=== PATIENT | female | born 1950 | race Caucasian/White ===

== ENCOUNTER 2018-02-05 17:42 | Inpatient (IN) | payer MEDICARE, BC ==
[~2018-02-05] VITALS: Ht 149.9 cm; Wt 52.6 kg
[2018-02-05] MEDS ORDERED: LOVA20TA2 PO (17:59)
[2018-02-05] MEDS ORDERED: TIZA4TAB4 PO (17:59)
[2018-02-05] MEDS ORDERED: LEVE500T20 PO (17:59)
[2018-02-05] MEDS ORDERED: HYDR-551 PO (17:59)
[2018-02-05] MEDS ORDERED: SULF1TAB48 PO (17:59)
[2018-02-05] MEDS ORDERED: GABA-532 PO (17:59)
[2018-02-05] MEDS ORDERED: CHLO118L TP (17:59)
[2018-02-05] MEDS ORDERED: DULO60CA45 PO (17:59)
[2018-02-05] MEDS ORDERED: CHOL20004 PO (17:59)
[2018-02-05] MEDS ORDERED: NAPR500T6 PO (17:59)
[2018-02-05] MEDS ORDERED: NAPR220T66 PO (17:59)
[2018-02-05] MEDS ORDERED: TRAM50TA2 PO (17:59)
[2018-02-05] MEDS ORDERED: LISI40TA4 PO (17:59)
[2018-02-05] MEDS ORDERED: DENO60DI SQ (17:59)
[2018-02-05] MEDS ORDERED: ALPR0.5T8 PO (17:59)
[2018-02-05] MEDS ORDERED: DULO30CA2 PO (17:59)
[2018-02-05] MEDS ORDERED: DICL75TA5 PO (17:59)
[2018-02-05] MEDS ORDERED: ALEN70TA45 PO (17:59)
[2018-02-05] MEDS ORDERED: HYDR25TA4 PO (17:59)
[2018-02-05] MEDS ORDERED: OXYB5TAB11 PO (17:59)
[2018-02-05] MEDS ORDERED: OMEP20TA5 PO (17:59)
[2018-02-05] MEDS ORDERED: CEPH500C2 PO (17:59)
[2018-02-05] MEDS ORDERED: MELO-107 PO (17:59)
[2018-02-05] MEDS ORDERED: DOCU100C36 PO (17:59)
[2018-02-05 20:22] VITALS: BP 129/82
[2018-02-05] MEDS ORDERED: TIZANIDINE HCL 4 MG TABLET PO PRN (20:30)
[2018-02-05] MEDS ORDERED: OXYBUTYNIN CHLORIDE 5 MG TABLET PO SCH (20:30)
[2018-02-05] MEDS ORDERED: Medication Not On Formulary EA (Omeprazole 20 MG) PO SCH (20:30)
[2018-02-05] MEDS ORDERED: ACETAMINOPHEN 325 MG TABLET PO PRN (20:30)
[2018-02-05] MEDS ORDERED: ALENDRONATE SODIUM 70 MG TABLET PO SCH (20:30)
[2018-02-05] MEDS ORDERED: TEMAZEPAM 7.5 MG CAPSULE PO PRN (20:30)
[2018-02-05] MEDS ORDERED: MAGNESIUM HYDROXIDE 30 ML LIQUID UDC PO PRN (20:30)
[2018-02-05] MEDS ORDERED: Medication Not On Formulary EA (Meloxicam 15 MG) PO SCH (20:30)
[2018-02-05] MEDS ORDERED: MAG HYDROX/AL HYDROX/SIMETH 30 ML LIQUID UDC PO PRN (20:30)
[2018-02-05 20:55] VITALS: BP 125/72
[2018-02-06] MEDS: LORAZEPAM 0.5 MG TABLET PO PRN ×2 (04:55→21:28)
[2018-02-06 06:55] LABS: BASOPHILS # (AUTO) 0.1 K/uL (0.0-8.0); BASOPHILS % (AUTO) 0.8 % (0.0-2.0); EOSINOPHILS # (AUTO) 0.1 K/uL (0.0-0.7); EOSINOPHILS % (AUTO) 1.1 % (0.0-7.0); HEMATOCRIT 34.2 % (31.2-41.9); HEMOGLOBIN 11.8 g/dL (10.9-14.3); LYMPHOCYTES % (AUTO) 13.4 % (20.5-51.5); MEAN CORPUSCULAR HGB CONC 34 g/dL (32.3-35.6); MEAN CORPUSCULAR VOLUME 87.2 fL (75.5-95.3); MONOCYTES # (AUTO) 0.7 K/uL (2.0-10.0); MONOCYTES % (AUTO) 8.4 % (0.0-11.0); NEUTROPHILS # (AUTO) 5.9 K/uL (1.8-8.9); NEUTROPHILS % (AUTO) 76.3 % (38.5-71.5); PLATELET COUNT (AUTO) 288 K/uL (179-408); RED BLOOD CELL COUNT(AUTO) 3.92 MIL/uL (3.63-4.92); WHITE BLOOD COUNT (AUTO) 7.7 K/uL (3.8-11.8)
[2018-02-06 07:20] LABS: BILIRUBIN,TOTAL 0.5 mg/dL (0.2-1.0); CREATININE 0.6 mg/dL (0.6-1.3); MAGNESIUM 2.3 mg/dL (1.8-2.4); PHOSPHOROUS 2.3 mg/dL (2.5-4.9); POTASSIUM 3.9 mmol/L (3.5-5.1)
[2018-02-06 07:30] VITALS: BP 148/90
[2018-02-06] MEDS ORDERED: DICLOFENAC 75 MG TABLET.DR PO SCH ×2 (08:00)
[2018-02-06] MEDS ORDERED: NAPROXEN 500 MG PO SCH (08:00)
[2018-02-06 08:22] LABS: THYROID STIMULATING HORMONE 0.337 mIU/mL (0.358-3.740)
[2018-02-06] MEDS: NAPROXEN 500 MG TABLET PO SCH ×2 (08:38→18:25)
[2018-02-06] MEDS: LEVETIRACETAM 500 MG TABLET PO SCH ×2 (08:38→20:13)
[2018-02-06] MEDS: CHOLECALCIFEROL 1,000 UNIT TABLET PO SCH (08:38)
[2018-02-06] MEDS: LISINOPRIL 20 MG TABLET PO SCH (08:39)
[2018-02-06] MEDS: PANTOPRAZOLE SODIUM 40 MG TABLET.DR PO SCH (08:41)
[2018-02-06] MEDS: DOCUSATE SODIUM 100 MG CAPSULE PO SCH ×3 (08:48→17:00)
[2018-02-06] MEDS ORDERED: Medication Not On Formulary EA (Cholecalciferol (Vitamin D3) (Vitamin D CAPSULE) 2,000 U PO SCH (09:00)
[2018-02-06] MEDS ORDERED: Medication Not On Formulary EA (Lisinopril 40 MG) PO SCH (09:00)
[2018-02-06] MEDS: HYDROCHLOROTHIAZIDE 25 MG TABLET PO SCH (14:29)
[2018-02-06 15:11] VITALS: BP 101/72
[2018-02-06] MEDS ORDERED: NEUTRA PHOS PACKET PO ONE (15:45)
[2018-02-06] MEDS ORDERED: OLANZAPINE 2.5 MG TABLET PO SCH ×2 (17:00→20:00)
[2018-02-06] MEDS ORDERED: GABAPENTIN 100 MG CAPSULE PO SCH (18:00)
[2018-02-06] MEDS: GABAPENTIN 100 MG CAPSULE PO SCH (18:25)
[2018-02-06 20:00] VITALS: BP 141/86
[2018-02-06] MEDS: SIMVASTATIN 10 MG TABLET PO SCH (20:13)
[2018-02-07 07:24] LABS: CREATININE 0.6 mg/dL (0.6-1.3); PHOSPHOROUS 2.4 mg/dL (2.5-4.9); POTASSIUM 3.9 mmol/L (3.5-5.1)
[2018-02-07 07:30] VITALS: BP 145/98
[2018-02-07] MEDS: CHOLECALCIFEROL 1,000 UNIT TABLET PO SCH (08:59)
[2018-02-07] MEDS: NAPROXEN 500 MG TABLET PO SCH ×2 (08:59→17:41)
[2018-02-07] MEDS: DOCUSATE SODIUM 100 MG CAPSULE PO SCH ×3 (08:59→17:41)
[2018-02-07] MEDS: LEVETIRACETAM 500 MG TABLET PO SCH ×2 (08:59→21:15)
[2018-02-07] MEDS: HYDROCHLOROTHIAZIDE 25 MG TABLET PO SCH (08:59)
[2018-02-07] MEDS ORDERED: OLANZAPINE 2.5 MG TABLET PO SCH (09:00)
[2018-02-07] MEDS: LISINOPRIL 20 MG TABLET PO SCH (09:00)
[2018-02-07] MEDS: PANTOPRAZOLE SODIUM 40 MG TABLET.DR PO SCH (09:01)
[2018-02-07] MEDS ORDERED: NEUTRA PHOS PACKET PO ONE (11:30)
[2018-02-07 15:45] VITALS: BP 148/97
[2018-02-07] MEDS ORDERED: INSULIN REGULAR, HUMAN 300 UNIT/3 ML VIAL SQ PRN (16:15)
[2018-02-07] MEDS ORDERED: DEXTROSE 50% 50 ML DISP.SYRIN IV PRN (16:15)
[2018-02-07] MEDS: BLOOD SUGAR DIAGNOSTIC 1 EACH STRIP VI SCH ×2 (17:38→21:15)
[2018-02-07] MEDS: GABAPENTIN 100 MG CAPSULE PO SCH (17:41)
[2018-02-07] MEDS: OMEGA-3 FATTY ACIDS/FISH OIL CAPSULE PO SCH (17:43)
[2018-02-07 19:30] VITALS: BP 113/80
[2018-02-07] MEDS ORDERED: OLANZAPINE 5 MG TABLET PO SCH (21:00)
[2018-02-07] MEDS: SIMVASTATIN 10 MG TABLET PO SCH (21:15)
[2018-02-08] MEDS: LORAZEPAM 0.5 MG TABLET PO PRN (02:21)
[2018-02-08] MEDS: PANTOPRAZOLE SODIUM 40 MG TABLET.DR PO SCH (06:51)
[2018-02-08] MEDS: BLOOD SUGAR DIAGNOSTIC 1 EACH STRIP VI SCH ×2 (06:51→12:13)
[2018-02-08 07:30] VITALS: BP 116/81
[2018-02-08] MEDS: LEVETIRACETAM 500 MG TABLET PO SCH (09:18)
[2018-02-08] MEDS: NAPROXEN 500 MG TABLET PO SCH (09:18)
[2018-02-08] MEDS: OMEGA-3 FATTY ACIDS/FISH OIL CAPSULE PO SCH (09:18)
[2018-02-08] MEDS: DOCUSATE SODIUM 100 MG CAPSULE PO SCH ×2 (09:18→13:12)
[2018-02-08] MEDS: CHOLECALCIFEROL 1,000 UNIT TABLET PO SCH (09:18)
[2018-02-08] MEDS: LISINOPRIL 20 MG TABLET PO SCH (09:28)
[2018-02-08 09:30] VITALS: BP 140/94
[2018-02-08] MEDS: HYDROCHLOROTHIAZIDE 25 MG TABLET PO SCH (09:30)
[2018-02-08] MEDS ORDERED: PNEUMOCOCCAL 23-VAL P-SAC VAC 0.5 ML VIAL IM ONE (13:30)
== END 2018-02-08 14:30 | disposition home or self-care (01) | DRG 885 ==
LOC: ER 17:43 → GPS 18:13
PROVIDERS: ADMIT Psychiatry & Neurology Psychosomatic Medicine; ATTEND Registered Nurse
DX: F31.30 Bipolar disorder, current episode depressed, mild or moderate severity, unspecified (principal); E11.65 Type 2 diabetes mellitus with hyperglycemia; E44.0 Moderate protein-calorie malnutrition; J98.11 Atelectasis; G40.909 Epilepsy, unspecified, not intractable, without status epilepticus; G89.4 Chronic pain syndrome; E78.5 Hyperlipidemia, unspecified; Z95.0 Presence of cardiac pacemaker; M19.90 Unspecified osteoarthritis, unspecified site; Z68.23 Body mass index [BMI] 23.0-23.9, adult; I25.10 Atherosclerotic heart disease of native coronary artery without angina pectoris; I11.9 Hypertensive heart disease without heart failure; E83.39 Other disorders of phosphorus metabolism; F09 Unspecified mental disorder due to known physiological condition; Z79.899 Other long term (current) drug therapy
CPT/HCPCS: 36415; 71045; 83735; 84100; 84443; 84481; 85025; 90732; 93005; A4663; J1815